=== PATIENT | male | born 1980 | race Caucasian/White ===

== ENCOUNTER 2017-02-28 08:51 | Emergency (ER) | payer OTHER ==
[~2017-02-28] VITALS: Ht 200.7 cm; Wt 108.9 kg
[2017-02-28] MEDS ORDERED: TOBREX5 ML OP (10:48)
[2017-02-28] MEDS ORDERED: GARAMYCIN OPHT3.5 GM OP (10:48)
== END 2017-02-28 11:01 | disposition home or self-care (01) ==
LOC: ER 08:51
DX: H10.89 Other conjunctivitis (principal); H16.001 Unspecified corneal ulcer, right eye